=== PATIENT | male | born 1975 | race Hispanic/Latino ===

== ENCOUNTER 2019-02-17 19:51 | Inpatient (IN) | payer SELFPAY ==
[~2019-02-17 19:51] MED LIST: Iopamidol 370 76% 100 ML VIAL ONE; Iopamidol 370 76% 50 ML VIAL FS ONE
[2019-02-17 20:05] LABS: White Blood Cell (WBC) Count 20.9 thou/uL (4.8-10.8)
[2019-02-17] MEDS ORDERED: Bivalirudin 250 MG VIAL ONE (20:07)
[2019-02-17] MEDS ORDERED: Heparin 10,000 UNITS/1 ML VIAL ONE (20:13)
[2019-02-17] MEDS ORDERED: Atropine Sulfate 1 mg/10 ml Syringe ONE (20:17)
[2019-02-17] MEDS ORDERED: Atropine Sulfate 1 mg/1 ml Vial ONE (20:17)
[2019-02-17] MEDS ORDERED: Aggrastat 12.5 MG/250 ML 250 ML ONE (20:17)
[2019-02-17 20:19] LABS: ALT (SGPT) 44 U/L (8-55); AST (SGOT) 19 U/L (5-34); Albumin 4.6 g/dL (3.5-5.0); Alkaline Phosphatase 71 U/L (40-150); Anion Gap 18 mmol/L (10-20); BUN (Urea Nitrogen) 14 mg/dL (8.9-20.6); Bilirubin, Total 0.3 mg/dL (0.2-1.2); Calc. Creatinine Clearance 0 mL/min (70-130); Calcium 10.1 mg/dL (7.8-10.44); Carbon Dioxide 18 mmol/L (22-29); Chloride 105 mmol/L (98-107); Estimated GFR-MDRD 80; Globulin 2.8 g/dL (2.4-3.5); Glucose 131 mg/dL (70-105); Potassium 3.1 mmol/L (3.5-5.1); Protein, Total 7.4 g/dL (6.0-8.3); Sodium 138 mmol/L (136-145)
[2019-02-17] MEDS ORDERED: Clopidogrel Bisulfate 300 MG TAB ONE (20:19)
[2019-02-17] MEDS ORDERED: DOPamine 400 MG/D5W 250 ML 250 ML ONE (20:19)
[2019-02-17 20:21] LABS: Band 5 % (5-11); Hemoglobin 14.6 g/dL (14.0-18.0); Lymphocytes 17 % (21-51); MDiff Complete? YES; Mean Corpuscular HGB CONC 32.9 g/dL (32.0-36.0); Mean Corpuscular Volume 94.1 fL (78.0-98.0); Mean Platelet Volume 8.8 fL (7.4-10.4); Monocytes 5 % (0-10); Neutrophil 73 % (42-75); Platelet Count 192 thou/uL (130-400); Platelet Morphology Comment Appears Adequate; RBC Distribution Width 12.3 % (11.5-14.5); Red Blood Cell (RBC) Count 4.71 mill/uL (4.70-6.10)
[2019-02-17 20:44] LABS: CKMB 8.1 ng/mL (0-6.6)
[2019-02-17] MEDS ORDERED: DOPamine 400 MG/D5W 250 ML 250 ML IVPB SCH ×2 (21:00→21:30)
[2019-02-17] MEDS ORDERED: Morphine 2 MG/ML SYRINGE SLOW IVP PRN (21:01)
[2019-02-17] MEDS ORDERED: Mag-Al 1200 mg/1200 mg/30 ML UDCUP PO PRN (21:02)
[2019-02-17] MEDS ORDERED: Milk Of Magnesia 30 ML UDCUP PO PRN (21:02)
[2019-02-17] MEDS ORDERED: Aggrastat 12.5 MG/250 ML 250 ML IVPB SCH (21:15)
--- NOTE | 2019-02-17 21:44 | RAD ---
Chest one view HISTORY: Chest pain. FINDINGS: Cardiac silhouette is magnified by projection. Pulmonary vasculature are accentuated by sha llow inspiration. Mediastinum is midline. No lobar elevation or evidence of pneumothorax. IMPRESSION: No active cardiopulmonary abnormalities are demonstrated.
--- NOTE | 2019-02-17 21:51 | HP ---
HISTORY OF PRESENT ILLNESS: Raza Winchester is a 43-year-old male, Icelandic speaking only. He was brought by helicopter from unknown location. He says that his chest pain began at approximately 0330 hours, but the patient arrived here at 0750 hours. PAST MEDICAL HISTORY: Hypertension. MEDICATIONS: Unknown blood pressure medicines. ALLERGIES: NONE. PAST SURGICAL HISTORY: inguinal hernia repair.. SOCIAL HISTORY: Smokes 1 1/2 pack per day. Drinks beer on the weekends. FAMILY HISTORY: Mother had HI. REVIEW OF SYSTEMS: Unobtainable as the patient is Icelandic speaking only and need to go to the laboratory miller emergently. PHYSICAL EXAMINATION: VITAL SIGNS: Blood pressure 130/70, pulse of 90. HEENT: PERRL. NECK: Supple. CHEST: Clear. CARDIAC: S1 and S2 normal without any S3, S4, or murmurs. Carotid upstrokes normal without bruits. ABDOMEN: Mildly obese. Normal bowel sounds. No tenderness. EXTREMITIES: Revealed no clubbing, cyanosis, or edema. NEUROLOGIC: Grossly intact. LABORATORY DATA: EKG revealed significant ST-segment elevation inferiorly with ST-segment depression in lead V2 consistent with inferoposterior infarction. White count 20,900, hemoglobin 14.6, hematocrit 44.3, platelets 192,000. MB 8.1. Troponin I is 0.088. Sodium 138, potassium 3.1, chloride 105, carbon dioxide 18 , BUN 14, creatinine 1.02, and glucose 131. IMPRESSION: 1. Inferoposterior ST elevation myocardial infarction. 2. Hypertension. 3. Smoker. PLAN: An machine stuffer automatic was used to tell the patient that he needed to go to the laboratory miller emergently. Risks were discussed including , stroke, bleeding, vessel damage, and need for emergent surgery, re-narrowing, etc. Job ID: [id number] [facility]
[2019-02-17 21:56] VITALS: BMI 32.1
[2019-02-18 02:41] LABS: #Basophils 0.1 thou/uL (0.0-0.2); #Eosinphils 0.1 thou/uL (0.0-0.7); #Lymphocytes 3.4 thou/uL (1.20-3.40); #Monocytes 1.2 thou/uL (0.11-0.59); #Neutrophils 12.4 thou/uL (1.40-6.50); %Basophils 0.5 % (0.0-1.0); %Eosinophils 0.3 % (0.0-10.0); %Lymphocytes 19.8 % (21.0-51.0); %Monocytes 7.3 % (0.0-10.0); %Neutrophils 72.2 % (42.0-75.0); Hemoglobin 14.4 g/dL (14.0-18.0); Mean Corpuscular HGB CONC 33.3 g/dL (32.0-36.0); Mean Corpuscular Hemoglobin 31.3 pg (27.0-31.0); Mean Corpuscular Volume 93.7 fL (78.0-98.0); Mean Platelet Volume 8.4 fL (7.4-10.4); Platelet Count 205 thou/uL (130-400); RBC Distribution Width 12.3 % (11.5-14.5); Red Blood Cell (RBC) Count 4.61 mill/uL (4.70-6.10); White Blood Cell (WBC) Count 17.1 thou/uL (4.8-10.8)
[2019-02-18] MEDS ORDERED: Sodium Chloride 0.9% 1,000 ML IV SCH (03:00)
[2019-02-18 03:06] LABS: Hemoglobin A1c 5.6 % (4.0-6.0)
[2019-02-18 03:10] LABS: ALT (SGPT) 70 U/L (8-55); AST (SGOT) 228 U/L (5-34); Albumin 4.6 g/dL (3.5-5.0); Alkaline Phosphatase 68 U/L (40-150); Anion Gap 15 mmol/L (10-20); BUN (Urea Nitrogen) 14 mg/dL (8.9-20.6); Bilirubin, Total 0.3 mg/dL (0.2-1.2); Calc. Creatinine Clearance 147 mL/min (70-130); Calcium 9.8 mg/dL (7.8-10.44); Carbon Dioxide 24 mmol/L (22-29); Cardiac Risk 8.3 (Less than 4.5); Chloride 103 mmol/L (98-107); Cholesterol 292 mg/dl (< 200 Desired); Estimated GFR-MDRD Greater than 90; Globulin 2.6 g/dL (2.4-3.5); Glucose 128 mg/dL (70-105); HDL Cholesterol 35 mg/dL (>60 Neg Risk); LDL Cholesterol, Calculated 214 mg/dL; Protein, Total 7.2 g/dL (6.0-8.3); Sodium 138 mmol/L (136-145); Triglycerides 217 mg/dL (Less than 150)
[2019-02-18 04:19] LABS: CKMB 405.5 ng/mL (0-6.6)
[2019-02-18] MEDS ORDERED: Adenosine 6 MG/2 ML VIAL ONE (05:08)
[2019-02-18 09:23] LABS: CKMB 496.4 ng/mL (0-6.6)
[2019-02-18] MEDS ORDERED: Nitroglycerin 0.4 MG TAB (25 Tab Bottle) SL PRN (09:23)
--- NOTE | 2019-02-18 09:35 | CON ---
DATE OF CONSULTATION: HISTORY: Ranulfo Fragoso is a 43-year-old gentleman, , speaks no Italian. Pack a day smoker. Occasionally drinker. He snores, feels tired, apparently witnessed apneas per his . He was brought to the hospital yesterday with ongoing acute coronary syndrome. ST-segment elevation in inferior leads II, III, aVF and markedly elevated troponins. Taken to the cardiac cath, found to have 3-vessel disease. Please review the Cardiology's note. His is at the bedside. There is a chest painting and sealing supervisor who gives adequate history. 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 Takes no medication. No history of diabetes. Apparently, has history of hypertension, but takes no medication. PREVIOUS SURGERIES: Inguinal hernia operation. Tobacco; a pack and half years. No pneumonia or TB. No substance abuse. ALLERGIES: NONE. SOCIAL HISTORY: As noted. REVIEW OF SYSTEMS: Pertinent for possible sleep apnea. PHYSICAL EXAMINATION: GENERAL: In no distress. VITAL SIGNS: Blood pressure 143/97, pulse 70, saturation is 97%, and respiratory rate 25. CHEST: Decreased breath sounds. No wheezing. CARDIAC: Normal S1, S2. No gallops. ABDOMEN: No mass. LABORATORY DATA: Troponin is 74. Cholesterol is 292, triglycerides 217. White count 70,000, H and H 14 and 43, platelet count normal. Chest x-ray is clear. IMPRESSION: 1. Acute myocardial infarction, inferior status post cardiac cath, 3-vessel disease. 2. Hypertension with high cholesterol. 3. Sleep apnea. Pulmonary carpenter, follow while in the ICU. Continue cardiac care as per Cardiology. He needs an outpatient sleep study. Encourage to lose weight. Consultation note, 70 minutes, 50% direct patient care. Job ID: [id number]
[2019-02-18] MEDS: Clopidogrel Bisulfate 75 MG TAB PO SCH (09:55)
[2019-02-18] MEDS: Aspirin Chewable 81 MG TAB PO SCH (09:55)
[2019-02-18] MEDS: Carvedilol 3.125 MG TAB PO SCH ×2 (09:55→17:31)
[2019-02-18 15:47] LABS: CKMB 385.6 ng/mL (0-6.6); Critical Call CKMB RESULT DECREASING
--- NOTE | 2019-02-18 20:06 | CCL ---
SURGEON: Vladimir Madsen M.D. INDICATIONS: Inferoposterior STEMI. PROCEDURE: Cardiac catheterization. The patient is brought to the Cardiac track laborer and the right groin was prepped and draped. 1% lidocaine was infiltrated and a 6 Telugu sheath was inserted into the right femoral artery. 6 Telugu Judkin's left 4 was used for left coronary arteriography. This was removed and a 6 Telugu Judkin's right 4 guide was inserted. The right coronary artery was totally occluded. Floppy choice wire was advanced into the distal right coronary artery. There appeared to be a large amount of thrombotic material and Pronto extraction catheter was used with removal of a very significant amount of thrombotic material. The patient became bradycardic and was given Atropine 0.5 mg IV. He was also some hypotensive with systolic pressures in the 60s and 70s and was given fluid bolus as well as started on Dopamine. Rebel 4.0 x 32 mm stent was then positioned and deployed with excellent results. There was a cutoff in the distal vessel, the wire was extended to this area and the area was dilated with a 2.5 mm balloon. Adenosine 40 mcg was given twice. The patient had previously been given 4000 units of heparin prior to arriving in the [facility] and was given an additional 5000 to achieve an ACT of over 300. Aggrastat was also started due to the large amount of thrombotic material. At the conclusion, there was some flow in the distal part of the posterior descending. RESULTS: CORONARY ARTERIOGRAPHY: 1. Left main had a 50% stenosis. 2. The LAD had 70 and 50% stenosis. There was an 80 and 90% mid stenosis and 90% stenosis in the first diagonal. 3. The circumflex had a 70% distal stenosis. The first obtuse marginal had a 75-80, followed by 80% stenosis. 4. The right coronary artery was totally occluded proximally and filled faintly retrograde from the left. INTERVENTION RESULTS: The initial lesion was 100%, final lesion was 0%. IMPRESSION: 1. Left main plus three vessel coronary artery disease. 2. Successful bare metal stent placement in the proximal to mid right coronary artery (bare metal stent placed since it was felt that he will need to undergo CABG in the near future). [facility]
[2019-02-18] MEDS: Atorvastatin Calcium 40 MG TAB PO SCH (21:22)
[2019-02-19] MEDS: Aspirin Chewable 81 MG TAB PO SCH (08:59)
[2019-02-19] MEDS: Clopidogrel Bisulfate 75 MG TAB PO SCH (08:59)
[2019-02-19] MEDS: Carvedilol 3.125 MG TAB PO SCH ×2 (08:59→17:58)
--- NOTE | 2019-02-19 09:11 | PRG ---
DATE OF SERVICE: 02/19/2019 SUBJECTIVE: Richmond Winchester, this morning, is awake, alert, and responsive. No chest pain. No shortness of breath. OBJECTIVE: VITAL SIGNS: Saturations are 96% on room air, pulse 90, respirations 16, temperature 99, and blood pressure 90/59. CHEST: No wheezing or crackles. CARDIAC: Normal S1 and S2. No gallops. ABDOMEN: No masses. IMPRESSION: 1. Hypertension. 2. Coronary artery disease, status post cath. 3. Probably sleep apnea. PLAN: Disposition as per Cardiology. Pulmonary will follow at a distance. Please call if needed. Job ID: [id number]
[2019-02-19] MEDS: Atorvastatin Calcium 40 MG TAB PO SCH (20:22)
--- NOTE | 2019-02-20 01:46 | CON ---
DATE OF CONSULTATION: 02/19/2019 REQUESTING PHYSICIAN: Dr. Madsen. CHIEF COMPLAINT: Chest pain. HISTORY OF PRESENT ILLNESS: The patient is a 43-year-old smoker with a positive family history of heart disease, who was air flighted here after fairly sudden onset of severe substernal chest pain that he describes as feeling like his chest was going to break, it was associated with diaphoresis and vomiting and his ekg monitor showed inferior ST-elevation. He was taken emergently to the packing house laborer, where he was found to have severe left-sided disease with faint [id number] filling of the distal right coronary system and on right-sided injection, he had an occlusion with a filling defect consistent with that being the culprit vessel. Bare metal stenting was done in the right coronary proper as well as PDA to re-establish perfusion and so far he has had an uncomplicated post infarction course. An echocardiogram done post procedure showed an LVEF of about 40% or 45% with inferior and posterior hypokinesis. In retrospect, the patient had similar pain though not nearly as severe last July. He generally has no problems with his breathing. He has not had any dependent edema or orthopnea. He apparently takes no medications on a regular basis, although he says that he is known to be hypertensive. ALLERGIES: HE DENIES ANY MEDICAL ALLERGIES. SOCIAL HISTORY: He smokes 1 to 1-1/2 packs of cigarettes a day. FAMILY HISTORY: Significant for multiple family members on his mother's side with heart disease. His mother was diagnosed with heart failure in her early 60s. REVIEW OF SYSTEMS: Negative for any eye, speech, facial, or extremity symptoms consistent with TIAs. He says that his vision does get a bit blurry when his blood pressure gets too high. He does not have any claudication symptoms. No shortness of breath. No PND. No orthopnea. No deep tendon edema. PHYSICAL EXAMINATION: GENERAL: He is a young wright-appearing man, in no distress. VITAL SIGNS: He is 5 feet 7 inches, weighs 214.5 pounds. Temperature is 98.7, T-max was 99.7 on arrival, his heart rate was 71 and blood pressure 136/91, temperature 98.3, and 2 L nasal cannula generated a 100% O2 saturation. On the jin post procedure, his heart rates have been in the 80-90 range and his blood pressures today have ranged from 88 to 105 over 51 to 57. SKIN: He has no xanthelasma. NECK: No JVD. No carotid bruits. CHEST: Clear to auscultation. HEART: He has regular rate and rhythm without murmur, gallop, or rub. ABDOMEN: Soft and nontender. EXTREMITIES: He has easily palpable radial pulses. I was not able to appreciate dorsalis pedis pulses. He has palpable posterior tibials. He reports that he is right-hand dominant. Zachary's testing on the left hand is normal. He has no clubbing, cyanosis, or edema. LABORATORY DATA: His white count was 20.9, hemoglobin 14.6, hematocrit 44.3, and platelets 192,000. His electrolytes were normal with the exception of a potassium of 3.1. His initial glucose was 131 on presentation. Hemoglobin A1c is 5.6. BUN was 14, creatinine 1.02, calcium was 10.1, albumin 4.6. LFTs were normal. His cardiac enzymes done about 8 p.m. on the with followup draws on the at 2:30 and 7:45 in the morning and at 2 in the afternoon showed CK-MB of 8.1, 405.5, 496.4, and 385.6, and troponins of 0.088, 74.986, 92.427, and 71.688. His EKG showed a very dramatic ST elevation in III and aVF, slightly less so in II, and evolved to T-wave inversions in II, III, and aVF and an upright T-wave in V1 with a biphasic T-wave in V6. His chest x-ray showed some mild edema. His cardiac catheterization showed the large occluded right that was re-opened as described, has about 50% distal left main with diffuse irregularity in his circumflex system, reasonably long OM1 has serial high-grade lesions in it going well out distally. He has diffuse disease in a diagonal, but comes off in the midportion of the LAD, 70% or 80% lesion just beyond that and then an ulcerated lesion in his LAD with a maximum stenosis of about 80% or 90%. Echocardiogram is as described above. IMPRESSION AND RECOMMENDATIONS: The patient has been started on very low-dose Coreg 1.5625 mg b.i.d. His home medications of hydrochlorothiazide and lisinopril have not been restarted. He has been started on a high-dose Lipitor at 80 mg in the evening and a baby aspirin and daily Plavix. Currently, he is doing well and assuming that he remains stable. I have discussed stopping his Plavix in around 1-2 months and then when it has had a chance to wear off, doing surgical bypass to his left-sided disease including harvest of left radial for multiple arterial conduits. Job ID: [id number]
[2019-02-20] MEDS: Clopidogrel Bisulfate 75 MG TAB PO SCH (08:43)
[2019-02-20] MEDS: Aspirin Chewable 81 MG TAB PO SCH (08:43)
[2019-02-20] MEDS: Carvedilol 3.125 MG TAB PO SCH ×2 (08:43→16:32)
--- NOTE | 2019-02-20 14:05 | EKG ---
Test Reason : CHEST PAIN Blood Pressure : / mmHG Vent. Rate : 072 BPM Atrial Rate : 072 BPM P-R Int : 170 ms QRS Dur : 098 ms QT Int : 394 ms P-R-T Axes : 031 -03 108 degrees QTc Int : 431 ms Normal sinus rhythm with sinus arrhythmia ST elevation consider inferior injury or acute infarct * ACUTE [place] * Consider right ventricular involvement in acute inferior infarct Abnormal ECG Confirmed by ALONZO MARINO DO ([id number]), restaurant expeditor SAUNDRA FLETCHER ([id number]) on 02/20/2019 2:04:58 PM Referred By: NED Confirmed By:ALONZO MARINO DO
[2019-02-20 16:36] VITALS: BP 104/51; TEMP 98.4
--- NOTE | 2019-02-21 05:20 | DIS ---
DATE OF ADMISSION: 02/17/2019 DATE OF DISCHARGE: 02/20/2019 DISCHARGE DIAGNOSES: 1. Inferoposterior STEMI with bare metal stent placement in the proximal to mid right coronary artery, MB496.4, troponin I 74.968. 2. Left main and three-vessel coronary artery disease. 3. Smoker. 4. Severe hypercholesterolemia. 5. Hypertension. 6. Ischemic cardiomyopathy with ejection fraction of 40%-45%. DISCHARGE DISPOSITION: The patient to be seen in 2 to 3 weeks for followup. It is anticipated that he will undergo bypass surgery in 1 to 2 months after he is off the Plavix. DISCHARGE MEDICATIONS: 1. Aspirin 81 daily. 2. Plavix 75 mg daily x1 month and then stop. 3. Atorvastatin 80 daily. 4. Carvedilol 3.125 half a tablet b.i.d. 5. Nitroglycerin p.r.n. HOSPITAL COURSE: Mr. Richmond Winchester was brought via helicopter to the hospital from an unknown location. I am still not certain exactly where that was. He had been having chest pain for approximately 3-1/2 hours. He had changes consistent with inferoposterior infarction on his EKG. He went to the cardiac labor utilization superintendent emergently. He had a 50% left main, 70% and 50% proximal LAD, 80 to 90% mid LAD, 90% 1st diagonal. The circumflex a 70% distal stenosis. The first obtuse marginal had a 70%, 80% and 80% stenosis. The right coronary artery was totally occluded proximally and filled retrograde from the left. He underwent extraction catheter with removal of a large amount of thrombotic material. Rebel 4.0 x 32 mm stent was positioned and deployed. The patient did not have any further discomfort during hospital stay. At the time of discharge, he was walking 660 feet in the ashraf without complaints. Echocardiogram revealed ejection fraction of 40% to 45% with severe inferoposterior hypokinesis, mild left atrial enlargement, moderate mitral regurgitation, mild tricuspid regurgitation. He was seen in consultation by Dr. Chanel, who feels that he should undergo CABG in 1 to 2 months once he is off the Plavix. Job ID: [id number]
== END 2019-02-20 19:01 | disposition home or self-care (01) | DRG 249 ==
LOC: ERS 19:51 → CCU 19:57 → CCL 20:00 → CCU 20:54 → 2NO 02-18 18:00
PROVIDERS: ADMIT Internal Medicine Cardiovascular Disease; ATTEND Internal Medicine Cardiovascular Disease
PROC: 02703DZ Dilation of Coronary Artery, One Artery with Intraluminal Device, Percutaneous Approach (ICD-10-PCS; principal; 2019-02-17)
PROC: 4A023N7 Measurement of Cardiac Sampling and Pressure, Left Heart, Percutaneous Approach (ICD-10-PCS; 2019-02-17)
PROC: B2151ZZ Fluoroscopy of Left Heart using Low Osmolar Contrast (ICD-10-PCS; 2019-02-17)
PROC: B2111ZZ Fluoroscopy of Multiple Coronary Arteries using Low Osmolar Contrast (ICD-10-PCS; 2019-02-17)
DX: I21.11 ST elevation (STEMI) myocardial infarction involving right coronary artery (principal); I10 Essential (primary) hypertension; F17.210 Nicotine dependence, cigarettes, uncomplicated; E78.00 Pure hypercholesterolemia, unspecified; G47.30 Sleep apnea, unspecified; I25.10 Atherosclerotic heart disease of native coronary artery without angina pectoris
CPT/HCPCS: 36415; 36416; 71045; 80053; 80061; 82553; 83036; 84484; 85025; 85347; 92941; 92977; 93005; 93010; 93306; 93454; 93798; C1725; C1757; C1769; C1876; C1887; C9606; J0153; J0461; J0583; J1265; J1644; J2270; J3246; J3480; J7070; Q9967